=== PATIENT | male | born 1960 | race Caucasian/White ===

== ENCOUNTER 2018-10-04 17:18 | Outpatient (CLI) ==
[2018-10-04 18:26] VITALS: BMI 27.7
== END 2018-10-04 18:02 | disposition critical access hospital (66) ==
LOC: AMBL 17:18
PROVIDERS: ATTEND Internal Medicine
DX: R25.1 Tremor, unspecified (principal); I10 Essential (primary) hypertension; R51 Headache; F41.9 Anxiety disorder, unspecified

== ENCOUNTER 2018-10-04 18:08 | Emergency (ER) ==
[2018-10-04 18:26] VITALS: BP 139/99; TEMP 97.7; BMI 27.7
--- NOTE | 2018-10-04 18:40 | ED.PDOC ---
General ED Provider: Dr. RONALD PHILLIPS Chief Complaint: Hypertension Stated Complaint: hypertension, headache Time Seen by Physician: 18:10 (arrived with normal blood pressure ) Mode of Arrival: Ambulance Information Source: Patient, EMT Exam Limitations: No limitations Nursing and Triage Documentation Reviewed and Agree: Yes Does patient meet sepsis criteria?: No System Inflammatory Response Syndrome: Not Applicable Sepsis Protocol: For patient's 13 years and over: Temp is 96.8 and below OR 101 and greater Pulse >90 BPM Resp >20/minute Acutely Altered Mental Status Are patient's symptoms suggestive of a new infection, such as: -Pneumonia -Skin, Soft Tissue -Endocarditis -UTI -Bone, Joint Infection -Implantable Device -Acute Abdominal Infection -Wound Infection -Meningitis -Blood Stream Catheter Infection -Unknown Miscellaneous Complaint Exam - Complex/Multi-System Complaint/Exam Onset/Duration: stated that his b/p p.t.a at home was very high he did not take any meds Symptoms Are: Resolved Initial Severity: Severe (according to the pt) Location of Pain: headache Pain Radiates to: no this a typical headache with no L.O.C OR VISION RELATED CHANGED Character: DULL Aggravating: NONE Associated Signs and Symptoms: Denies: Decreased responsiveness, Confusion, Agitation, Dizziness, Weakness, Syncope, Headache, Short of air, Cough, Wheezing , Hemoptysis, Chest pain, Palpitations, Edema, Nausea, Vomiting, Diarrhea, Abdominal pain, Back pain, Dysuria, Hematemesis, Melena, Decreased oral intake, Fever, Diaphoresis, Immunocompromised, Anticoagulation Therapy, Recent medication changes, Indwelling medical scheduler, Prior MRSA, Prior VRE, Recent trauma, Remote trauma Recent Echo/LV Function: No Respiratory Distress: None JVD Present: No Tachypnea Present: No Stridor Present: No Abdominal Findings: Present: Normal findings Glascow Coma Scale (see protocol): 15 Meningeal Signs Positive: No Focal Weakness: Present: None Focal Sensory Loss: Present: None Gait: Normal Babinski Sign: Negative Right, Negative Left Skin Findings: Present: Normal findings Differential Diagnosis: Metabolic Abnormality, UTI Quality Indicators for Cardiac Chest Pain: EKG in 10min. Quality Indicators for AMI: EKG in 10min. Quality Indicator For Non-Traumatic Chest Pain/Syncope: EKG Performed Review of Systems - Review Of Systems Constitutional: Reports: No symptoms Eyes: Reports: No symptoms Ears, Nose, Mouth, Throat: Reports: No symptoms Respiratory: Reports: No symptoms Cardiac: Reports: No symptoms GI: Reports: No symptoms : Reports: No symptoms Musculoskeletal: Reports: No symptoms Skin: Reports: No symptoms Neurological: Reports: Headache Endocrine: Reports: No symptoms Hematologic/Lymphatic: Reports: No symptoms All Other Systems: Reviewed and Negative Past Medical History - Past Medical History Previously Healthy: Yes Endocrine: Reports: DM 2 Cardiovascular: Reports: Hypertension Respiratory: Reports: None Hematological: Reports: None Gastrointestinal: Reports: None Genitourinary: Reports: None Neuro/Psych: Reports: Depression Musculoskeletal: Reports: None Cancer: Reports: None - Surgical History General Surgical History: Reports: None - Family History Family History: Reports: None - Social History Smoking Status: Current every day smoker, Light tobacco smoker Hx Substance Use: No Alcohol Screening: Occasionally - Immunizations Tetanus Shot up to Date: Yes Physical Exam - Physical Exam Appearance: Well-appearing, No pain distress, Well-nourished Eyes: TERA, EOMI, Conjunctiva clear ENT: Ears normal, Nose normal, Oropharynx normal Respiratory: Airway patent, Breath sounds clear, Breath sounds equal, Respirations nonlabored Cardiovascular: RRR, Pulses normal, No rub, No murmur GI/: Soft, Nontender, No masses, Bowel sounds normal, No Organomegaly Musculoskeletal: Normal strength, ROM intact, No edema, No calf tenderness Skin: Warm, Dry, Normal color Neurological: Sensation intact, Motor intact, Reflexes intact, Cranial nerves intact, Alert, Oriented Psychiatric: Affect appropriate, Mood appropriate Physician Notification - Case Discussed Physician Notified: LARRY LR Time of Notification: 19:00 Critical Care Note - Critical Care Note Total Time (mins): 0 Course - Course Hematology/Chemistry: 10/04/18 18:41 10/04/18 18:41 Orders, Labs, Meds: Lab Review 10/04/18 10/04/18 10/04/18 18:35 18:41 18:41 WBC 10.61 H RBC 4.61 L Hgb 14.3 Hct 42.4 MCV 92.0 MCH 31.0 MCHC 33.7 RDW Coeff of Shubham 12.6 Plt Count 280 Immature Gran % (Auto) 0.4 Neut % (Auto) 79.4 Lymph % (Auto) 12.3 [place] % (Auto) 5.7 Eos % (Auto) 1.5 Baso % (Auto) 0.7 Immature Gran # (Auto) 0.0 Neut # (Auto) 8.4 H Lymph # (Auto) 1.3 [place] # (Auto) 0.6 Eos # (Auto) 0.2 Baso # (Auto) 0.1 PT 9.5 INR 0.95 APTT 21.2 L Sodium Potassium Chloride Carbon Dioxide Anion Gap BUN Creatinine Estimated GFR (MDRD) BUN/Creatinine Ratio Glucose Calcium Total Bilirubin AST ALT Alkaline Phosphatase Total Creatine Kinase CK-MB (CK-2) CK-MB (CK-2) % Troponin I Total Protein Albumin Globulin Albumin/Globulin Ratio TSH Free T4 Influ A Molecular Assay Negative by naat Influ B Molecular Assay Negative by naat 10/04/18 10/04/18 18:41 18:41 WBC RBC Hgb Hct MCV MCH MCHC RDW Coeff of Shubham Plt Count Immature Gran % (Auto) Neut % (Auto) Lymph % (Auto) [place] % (Auto) Eos % (Auto) Baso % (Auto) Immature Gran # (Auto) Neut # (Auto) Lymph # (Auto) [place] # (Auto) Eos # (Auto) Baso # (Auto) PT INR APTT Sodium 142.3 Potassium 4.00 Chloride 104.9 Carbon Dioxide 28.0 Anion Gap 13.40 BUN 10.9 Creatinine 0.96 Estimated GFR (MDRD) 81.00 BUN/Creatinine Ratio 11.35 Glucose 118.6 H Calcium 8.89 Total Bilirubin 0.35 AST 23.5 ALT 14.8 Alkaline Phosphatase 70.9 Total Creatine Kinase 200.7 H CK-MB (CK-2) 1.010 CK-MB (CK-2) % 0.5000 Troponin I < 0.012 Total Protein 7.74 Albumin 4.43 Globulin 3.31 Albumin/Globulin Ratio 1.33 TSH 1.560 Free T4 1.16 Influ A Molecular Assay Influ B Molecular Assay Orders Category Date Time Status EKG-(ED ONLY) Stat CARDIO 10/04/18 18:30 Completed CBC W/ AUTO DIFF Stat LAB 10/04/18 18:41 Completed COMPREHENSIVE METABOLIC PANEL Stat LAB 10/04/18 18:41 Completed CREATINE KINASE Stat LAB 10/04/18 18:41 Completed FLU A/B MOLECULAR Stat LAB 10/04/18 18:35 Completed FREE T4 (FREE THYROXINE) Stat LAB 10/04/18 18:41 Completed PARTIAL THROMBOPLASTIN TIME Stat LAB 10/04/18 18:41 Completed PT WITH INR Stat LAB 10/04/18 18:41 Completed THYROID STIMULATING HORMONE Stat LAB 10/04/18 18:41 Completed TROPONIN I Stat LAB 10/04/18 18:[address] HEAD W/O CONTRAST Stat RADS 10/04/18 18:31 Completed Vital Signs: Temp Pulse Resp BP Pulse Ox 10/04/18 18:08 97.7 F 82 20 139/99 H 95 Departure - Departure Time of Disposition: 19:00 Disposition: PLACED OBSERVATION Discharge Problem: Hypertension Qualifiers: Hypertension type: unspecified Qualified Code(s): I10 - Essential (primary) hypertension Instructions: Hypertension (ED) Condition: Good Pt referred to PMD for follow-up: Yes IPMP verified?: No Additional Instructions: Continue to monitor your blood pressure. Continue to take your home meds. Follow up with your primary care physician as needed. Allergies/Adverse Reactions: Allergies lisinopril Adverse Reaction (Verified 10/04/18 18:23) Rash Home Medications: Ambulatory Orders Alprazolam [Xanax] 0.5 mg PO BID 10/04/18 Amlodipine Besylate [Norvasc] 2.5 mg PO BEDTIME 10/04/18 Aspirin [Aspirin EC] 81 mg PO BEDTIME 10/04/18 Cetirizine HCl [Zyrtec] 10 mg PO BEDTIME 10/04/18 Clopidogrel Bisulfate [Plavix] 75 mg PO BEDTIME 10/04/18 Hydrocodone Bit/Acetaminophen [[place] 7.5-325] 7.5 - 325 mg PO TID PRN 10/04/18 Ibuprofen [Motrin] 600 mg PO Q6H PRN 10/04/18 Rosuvastatin Calcium [Crestor] 10 mg PO BEDTIME 10/04/18 Sertraline HCl [Zoloft] 25 mg PO BEDTIME 10/04/18
--- NOTE | 2018-10-04 19:13 | CT ---
EXAM: CT BRAIN HISTORY: Head pain TECHNIQUE: CT brain without intravenous contrast. 5-mm axial sections with Reformations. COMPARISON: 09/23/2018 FINDINGS: Brain is unremarkable without evidence of hemorrhage or large vessel distribution recent ischemic in farction. There is no suggestion of acute hydrocephalus or subdural fluid collection. No mass or ma ss effect. Cranium has no acute finding. Mastoid processes are aerated. The visualized paranasal sinuses are clear. IMPRESSION: No acute intracranial process.
== END 2018-10-04 19:45 | disposition home or self-care (01) ==
LOC: ED 18:08
DX: I10 Essential (primary) hypertension (principal); R51 Headache; E11.9 Type 2 diabetes mellitus without complications; F17.210 Nicotine dependence, cigarettes, uncomplicated; Z79.899 Other long term (current) drug therapy
CPT/HCPCS: 36415; 80053; 82550; 82553; 84439; 84443; 84484; 85025; 85610; 85730; 87502; 93005; 93010; 99284